=== PATIENT | female | born 1985 | race Two or more races ===

== ENCOUNTER 2017-10-24 09:15 | Emergency (ER) | payer OTHER ==
[2017-10-24] MEDS: LIDOCAINE 1%/EPI (MDV) 50 ML INJ INJ (09:46)
[2017-10-24] MEDS: DIPHTH/TET/ACEL PERTUSS (ADULT) 0.5 ML VIAL IM* (09:48)
== END 2017-10-24 11:25 | disposition home or self-care (01) ==
LOC: FTE 09:15
DX: S01.81XA Laceration without foreign body of other part of head, initial encounter (principal); S62.617A Displaced fracture of proximal phalanx of left little finger, initial encounter for closed fracture; S06.0X9A Concussion with loss of consciousness of unspecified duration, initial encounter; F17.210 Nicotine dependence, cigarettes, uncomplicated; S29.9XXA Unspecified injury of thorax, initial encounter; W18.39XA Other fall on same level, initial encounter; Y92.9 Unspecified place or not applicable; Z23 Encounter for immunization
CPT/HCPCS: 12011; 70450; 70486; 71045; 72125; 73140; 81025; 90471; 90715; 99285-25